=== PATIENT | male | born 1990 | race Caucasian/White ===

== ENCOUNTER 2017-07-20 19:01 | Emergency (ER) | payer OTHER ==
[~2017-07-20] VITALS: Ht 170.2 cm; Wt 127.1 kg
[2017-07-20] MEDS ORDERED: IBUPROFEN 800800 M1 PO (19:44)
[2017-07-20] MEDS ORDERED: TRAMADOL 50 MG50 MG PO (19:44)
[2017-07-20 20:00] VITALS: BP 152/83
== END 2017-07-20 20:00 | disposition home or self-care (01) ==
LOC: M.ERS 19:01
DX: S93.492A Sprain of other ligament of left ankle, initial encounter (principal); W18.49XA Other slipping, tripping and stumbling without falling, initial encounter; Y93.89 Activity, other specified; Y92.89 Other specified places as the place of occurrence of the external cause; Y99.8 Other external cause status